=== PATIENT | female | born 1965 | race African-American/Black ===

== ENCOUNTER → 2017-02-15 | Outpatient (CLI) | payer BC ==
[~2017-02-15] MED LIST: FERRO-TIME325 MG PO
--- NOTE | ~2017-02-15 | MY11 ---
[facility] A Service of [facility] RADIOLOGY TEXT RESULTS PATIENT: ALAINA REGALADO LOCATION: [facility] : 69 UNIT #: [id number] AGE: [address]: Blossom Ramesh MD SEX: F ORDER DR: [id number] [address] [address] [id number] O MR#: [id number] Acc #: [id number] NAME: ALAINA REGALADO : 1965 SEX: F STUDY DATE/TIME: 02/15/2017 9:26 UNIT: [facility] ROOM: STUDY DESCRIPTION: MY Mammogram Screening Dig Joni Attending Physician: Blossom Ramesh M.D. Referring Physician: Blossom Ramesh M.D. Ordering Physician: Blossom Ramesh M.D. Primary Care Physician: Blossom Ramesh M.D. MEDICAL IMAGING REPORT This report is preliminary unless electronic signature is present. EXAM Digital screening mammogram, 02/15/2017, [facility]. HISTORY 51-year-old woman. Family history of ovarian cancer in mother age 60. Annual screen. COMPARISON Mammograms date to 07/09/2010 with most recent 12/26/2012. FINDINGS Digital imaging of each breast was completed utilizing screening protocol. Review includes FDA-approved CAD device. Breast parenchyma is partially fatty replaced. Residual fibroglandular opacities are dominant in the right breast. There is no interval change. I see no breast mass. There are no suspicious microcalcifications and no architectural deformity. IMPRESSION Negative mammogram. Annual screening recommended. Patients over the age of 40 are entered into a reminder system with target due date for the next mammogram. A result letter will also be sent to the patient. BIRADS: 1 Negative. Dictated by... Brown Quintanilla M.D. THIS IS AN ELECTRONICALLY VERIFIED REPORT Brown Quintanilla M.D. at 02/15/2017 1:39 PM JOSE C/lilli TD: 02/15/2017 13:18 [facility] A Service of [facility] RADIOLOGY TEXT RESULTS PATIENT: ALAINA REGALADO LOCATION: [facility] #: [id number] : 69 UNIT #: [id number] AGE: [address]: Blossom Ramesh MD SEX: F ORDER DR: JOB #: [id number] MEDICAL IMAGING REPORT Page 1 of 1
== END | disposition home or self-care (01) ==
LOC: SMAM 08:08
DX: Z12.31 Encounter for screening mammogram for malignant neoplasm of breast (principal)
CPT/HCPCS: G0202